=== PATIENT | male | born 1990 | race Caucasian/White ===

== ENCOUNTER 2016-07-20 21:15 | Emergency (ER) | payer SELFPAY ==
[~2016-07-20] VITALS: Ht 180.3 cm; Wt 85.0 kg
[2016-07-21 01:50] VITALS: BP 144/82
== END 2016-07-21 02:43 | disposition home or self-care (01) ==
LOC: ER 21:16
DX: K40.90 Unilateral inguinal hernia, without obstruction or gangrene, not specified as recurrent (principal); Z88.0 Allergy status to penicillin; Z98.890 Other specified postprocedural states
CPT/HCPCS: 99281